=== PATIENT | female | born 1970 | race Caucasian/White ===

== ENCOUNTER 2024-07-31 13:26 | Outpatient (AMB) | payer OTHER, SELFPAY ==
--- NOTE | 2024-07-31 13:28 | A.OFFVIS_ITS ---
Vital Signs 07/31/24 13:30 Height 5 ft Weight 175 lb 4.28 oz BMI 34.2 BP 146/98 H Blood Pressure Location Rt brachial Position Sitting Pulse 81 Pulse Source Pulse Oximeter Pulse Oximetry (%) 98 Oxygen Delivery Method Room Air Intake Visit Reasons: mild intermittent asthma Allergies No Known Allergies Allergy (Verified 07/31/24 13:35) HPI Comments Details: Evaluation. The patient is a 54 year woman with a history of tobacco dependency presenting with worsening respiratory symptoms in addition to sleep apnea. The patient states that she has had worsening cough and chest congestion. She recently had a viral syndrome that developed into some chest tightness and wheezing. She went to an urgent care. There she was prescribed prednisone and also inhaler. She is not sure if she got antibiotics. She still coughing still has some chest congestion. In the meantime she also has other potential allergens. Primarily to dust mites. She is wondering if she could have a allergy component. She also has a beach house and there was significant amount of mold at the beach house. She did have worsening respiratory symptoms where she was there. Will go ahead and request additional blood work to assess her allergies to see this is a potential trigger in her worsening symptoms. The patient also has daytime drowsiness. She does have an elevated [place] score of 08/05. She has a history of significant snoring. She was evaluated by her dentist in the past considering a mandibular device but she did not get 1. Currently she does have a mouth guard for her clenching of her teeth. Will request a home sleep study this time. In regards of pulmonary function studies will hold off at this time will wait for her respiratory symptoms do improve since she is still having significant wheezing or rhonchi. She will need additional respiratory medicines to stabilize her respiratory condition and then will reassess in a few months when she returns. If she has any worsening respiratory symptoms she will call for further evaluation. [facility] Medical History (Updated 07/31/24 @ 21:39 by Skyler James MD) Tobacco dependence CELESTINO (obstructive sleep apnea) Asthma Allergies Social History (Updated 07/31/24 @ 13:34 by Sera Gar CMA) Patient Tobacco Use Status: Current everyday Tobacco user Tobacco use type: Cigarette Cigarette Packs Per Day: 0.5 Cigarettes Per Day: 8 Review of Systems Const Reports daytime sleepiness and Reports difficulty sleeping Eyes Reports no additional complaints ENT Reports nasal congestion Card Denies chest pain Resp Reports chest congestion, Reports cough and Reports wheezing GI Reports no additional complaints Musc Reports no additional complaints Skin/Breast Denies rash Endo Reports no additional complaints Jarett/Lymph Reports no additional complaints Aller/Immun Reports wheezing Physical Exam Vital Signs: Last Vital Signs Pulse 81 07/31/24 13:30 BP 146/98 H 07/31/24 13:30 Pulse Ox 98 07/31/24 13:30 Oxygen Delivery Method Room Air 07/31/24 13:30 BMI result Body Mass Index 34.2 Const General: comfortable HEENT Head: Yes normocephalic Neck Neck: Yes supple Chest Chest palpation & inspection: normal inspection of the chest Resp Effort & Inspection: normal respiratory effort Auscultation: rhonchi, wheezes and diminished lung sounds Cardio Heart sounds: S1 normal heart sound present and S2 normal heart sound present GI Palpation (GI): Soft to palpation Skin General skin exam: no rashes or lesions noted Extrem General: Yes no clubbing, cyanosis or edema Assessment & Plan Assessment & Plan (1) Allergies: Code(s): T78.40XA - Allergy, unspecified, initial encounter Category: Medical Qualifiers: Encounter type: initial encounter Qualified Code(s): T78.40XA - Allergy, unspecified, initial encounter (2) Asthma: Code(s): J45.909 - Unspecified asthma, uncomplicated Category: Medical Qualifiers: Asthma severity: moderate Asthma persistence: persistent Asthma complication type: with acute exacerbation Qualified Code(s): J45.41 - Moderate persistent asthma with (acute) exacerbation (3) CELESTINO (obstructive sleep apnea): Code(s): G47.33 - Obstructive sleep apnea (adult) (pediatric) Category: Medical (4) Tobacco dependence: Code(s): F17.200 - Nicotine dependence, unspecified, uncomplicated Category: Medical Plan start Symbicort MARIANNA as needed Zpack LDCT referral PSG PFTs when better F/U 2-3 months Orders: Orders Complete Blood Count Auto Diff Today J45.909 - Unspecified asthma, uncomplicated, T78.40XA - Allergy, unspecified, initial encounter Erythrocyte Sedimentation Rate Today J45.909 - Unspecified asthma, uncomplicated, T78.40XA - Allergy, unspecified, initial encounter Hypersensitive Pneumonitis Prf Today J45.909 - Unspecified asthma, uncomplicated, R91.8 - Other nonspecific abnormal finding of lung field, T78.40XA - Allergy, unspecified, initial encounter RT home sleep study Today G47.33 - Obstructive sleep apnea (adult) (pediatric) Resp Allergy Profile Region I Today J45.909 - Unspecified asthma, uncomplicated, R91.1 - Solitary pulmonary nodule, T78.40XA - Allergy, unspecified, initial encounter Referrals Lung Cancer Screening Referral F17.200 - Nicotine dependence, unspecified, uncomplicated Medications: New albuterol sulfate 90 mcg/actuation 2 inhalations inhalation Q6H PRN 18 grams 12RF shortness of breath or wheezing 30 days J44.9 - Chronic obstructive pulmonary disease, unspecified budesonide-formoterol 160-4.5 mcg/actuation (Symbicort) 2 puffs inhalation BID 10.2 grams 11RF 30 days J44.89 - Other specified chronic obstructive pulmonary disease azithromycin 500 mg PO DAILY 3 tabs 0RF 3 days Coding Level of Care Code New Pt Level 4 (33516) Diagnoses Allergy, initial encounter T78.40XA Encounter type: initial encounter Moderate persistent asthma with acute exacerbation J45.41 Asthma severity: moderate Asthma persistence: persistent Asthma complication type: with acute exacerbation CELESTINO (obstructive sleep apnea) G47.33 Tobacco dependence F17.200 Time Spent (min) 40
[2024-07-31 13:30] VITALS: BP 146/98; PULSE 81; O2SAT 98; BMI 34.2
== END 2024-07-31 14:01 | disposition home or self-care (01) ==
PROVIDERS: PCP Physician Assistant Medical; Visit Provider Hospitalist
DX: T78.40XA Allergy, unspecified, initial encounter (principal); J45.41 Moderate persistent asthma with (acute) exacerbation; G47.33 Obstructive sleep apnea (adult) (pediatric); F17.200 Nicotine dependence, unspecified, uncomplicated
CPT/HCPCS: 99204

== ENCOUNTER 2024-08-07 14:16 | Outpatient (REF) | payer OTHER, SELFPAY ==
[2024-08-07 16:22] LABS: MANUAL DIFF FLAG NO
[2024-08-07 16:34] LABS: Basophils Percent Auto 0.5 % (0-2); Eosinophils Absolute Auto 0.2 X10*3/uL (0.0-0.4); Hematocrit 39.4 % (37.0-47.0); Hemoglobin 13.4 g/dl (12.0-16.0); Imm Gran Abs Auto 0.01 X10*3/uL (0.00-0.03); Imm Gran Pct Auto 0.1 % (0.0-0.4); Lymphocytes Absolute Auto 2.2 X10*3/uL (1.2-4.9); Lymphocytes Percent Auto 30.3 % (20-40); Mean Corpuscular Hemoglobin 30.7 pg (27.0-33.0); Mean Corpuscular Volume 90.2 fL (80.0-98.0); Mean Platelet Volume 8.7 fL (9.4-12.3); Monocytes Absolute Auto 0.6 X10*3/uL (0.1-1.2); Monocytes Percent Auto 7.8 % (2-11); Neutrophils Absolute Auto 4.4 x10*3/uL (2.0-8.3); Neutrophils Percent Auto 59.3 % (45-73); Platelet Count 486 X10*3/uL (160-400); Red Blood Count 4.37 X10*6/uL (4.20-5.50); Red Cell Distribution Width 13.5 % (11.0-16.0); White Blood Count 7.4 X10*3/uL (4.8-10.8)
[2024-08-07 18:25] LABS: Erythrocyte Sedimentation Rate 11 MM/HR (0-20)
[2024-08-10 20:09] LABS: Class Alternaria alternata 0; Class Aspergillus fumigatus 0; Class Bermuda Grass 0; Class Birch 0; Class Cat Dander 0; Class Cladosporium herbarum 0; Class Cockroach 1; Class Common Ragweed 4; Class Cottonwood 0; Class Derm. pterony 1; Class Dermatophagoides farinae 1; Class Dog Dander 0; Class Elm 0; Class Maple Box Elder 0; Class Mountain Cedar 0; Class Mouse Urine Protein 0; Class Mugwort 0/1; Class Oak 0; Class Penicillium crysogenum 0; Class Rough Pigweed 0; Class Sheep Sorrel 0; Class Sycamore 0; Class Timothy Grass 0; Class Walnut Tree 0; Class White Ash 0; Class White Mulberry 0; D001 IgE D pteronyssinus 0.48 kU/L; D002 - IgE D farinae 0.49 kU/L; E001 - IgE Cat Dander <0.10 kU/L; E005 - IgE Dog Dander <0.10 kU/L; E072-IgE Mouse Urine <0.10 kU/L; G002 IgE Bermuda Grass <0.10 kU/L; G006 - IgE Timothy Grass <0.10 kU/L; I006-IgE Cockroach, German 0.41 kU/L; Immunoglobulin E 324 kU/L (<OR=114); M001 IgE Penicillium chrysogen <0.10 kU/L; M002 - IgE Cladosporium herbar <0.10 kU/L; M003 - IgE Aspergillus fumigat <0.10 kU/L; M006 - IgE Alternaria alternat <0.10 kU/L; T001 IgE Maple/Box Elder <0.10 kU/L; T003 IgE Common Silver Birch <0.10 kU/L; T006 - IgE Cedar, Mountain <0.10 kU/L; T007 - IgE Oak, White <0.10 kU/L; T008 IgE Elm, American <0.10 kU/L; T010 - IgE Walnut <0.10 kU/L; T011 - IgE Maple Leaf Sycamore <0.10 kU/L; T014 - IgE Cottonwood <0.10 kU/L; T015 - IgE Ash, White <0.10 kU/L; T070 - IgE White Mulberry <0.10 kU/L; W006 - IgE Mugwort 0.21 kU/L; W014 IgE Pigweed, Common <0.10 kU/L; W018 IgE Sheep Sorrel <0.10 kU/L
[2024-08-15 15:39] LABS: Asperg fumigatus Precip Abs NEGATIVE (NEGATIVE); Micropoly faeni Abs NEGATIVE (NEGATIVE); Pigeon serum Abs NEGATIVE (NEGATIVE); Saccharo pora viridis Abs NEGATIVE (NEGATIVE); Thermo candidus Abs NEGATIVE (NEGATIVE); Thermoa vulgaris #1 NEGATIVE (NEGATIVE)
== END 2024-08-07 14:17 | disposition home or self-care (01) ==
LOC: HO.HHCL 14:16
PROVIDERS: Visit Provider Hospitalist
DX: J45.909 Unspecified asthma, uncomplicated (principal); R91.1 Solitary pulmonary nodule; R91.8 Other nonspecific abnormal finding of lung field; T78.40XA Allergy, unspecified, initial encounter
CPT/HCPCS: 36415; 82785; 85025; 85652; 86003; 86331; 86606; 86609

== ENCOUNTER → 2024-12-26 15:44 | Outpatient (REF) | payer OTHER, SELFPAY ==
--- OUTSIDE RECORDS SUMMARY | 2024-12-26 18:07 | XMS_ITS | Clinical Summary ---
Author Organization [facility] ity Address [address] [place] [address] Care Team Providers Care Party Host/Hostess Name Role Phone Sona Posada MD Primary Care Provider [phone] Social History Tobacco Use Types Packs/Day Years Used Date Smoking Tobacco: Never Assessed Comments Unknown Sex and Gender Information Value Date Recorded Sex Assigned at Not on file Legal Sex Female 9:36 PM EST Gender Identity Not on file Sexual Orientation Not on file Plan of Treatment Health Maintenance Due Date Last Done Comments Breast Cancer Screening 1969 DTaP,Tdap,and Td Vaccines (1 - Tdap) 1988 Hepatitis B Vaccines (1 of 3 - 19+ 3-dose series) 1988 Cervical Cancer Screening: P ap Smear 1990 Pneumococcal Vaccine: 50+ Ye ars (1 of 1 - PCV) 2019 Zoster Vaccines (1 of 2) 2019 COVID-19 Vaccine ( - 2023-2 5 season) 2024 Influenza Vaccine (Season Ended) 2025 HIB Vaccines Aged Out No longer eligi ble based on patient's age to complete this topic HPV Vaccines Aged Out No longer eligi ble based on patient's age to complete this topic Hepatitis A Vaccines Aged Out No long er eligible based on patient's age to complete this topic IPV Vaccines Aged Out No longer eligi ble based on patient's age to complete this topic MMR Vaccines Aged Out No longer eligi ble based on patient's age to complete this topic Meningococcal ACWY Vaccine Aged Out N o longer eligible based on patient's age to complete this topic Meningococcal B Vaccine Aged Out No l onger eligible based on patient's age to complete this topic Pneumococcal Vaccine: Pediat rics (0 to 5 Years) and At-Risk Patients (6 to 64 Years) Aged Out No longer eligible b ased on patient's age to complete this topic RSV Immunization Patients Un monika 20 months Aged Out No longer eligible b ased on patient's age to complete this topic Varicella Vaccines Aged Out No longer eligible based on patient's age to complete this topic Care Teams Party Host/Hostess Relationship Specialty Start Date End Date Sona Posada MD PCP - General 06/01/23
--- OUTSIDE RECORDS SUMMARY | 2024-12-26 18:07 | XMS_ITS | Encounter Summary ---
Author Organization [facility] Address [address] [place] [address] Care Team Providers Care Stationary Engineer Refrigeration Name Role Phone Sierra Carter PA-C Primary Care Provi monika Encounter Details Date Type Department Care Team (Late st Contact Info) Description 08/21/2024 Scanned Document [address] [phone] Pulmonary, Scan Social History Tobacco Use Types Packs/Day Years Used Date Smoking Tobacco: Every Day Cigarettes Smokeless Tobacco: Current Alcohol Use Standard Drinks/Week Comments Yes 0 (1 standard drink = 0.6 oz pur e alcohol) PHQ-2 Answer Date Recorded PHQ-2 Total Score 0 01/02/2024 Comments Unknown Sex and Gender Information Value Date Recorded Sex Assigned at Female 10/13/2023 2:00 PM EST Legal Sex Female 1:56 PM EST Gender Identity Not on file Sexual Orientation Not on file documented as of this encounter Plan of Treatment Upcoming Encounters Date Type Department Care Team (Late st Contact Info) Description 01/03/2025 3:45 PM EDT Office Visit [address] [phone] Sierra Carter PA-C [address] [place] [address] documented as of this encounter Visit Diagnoses Not on filedocumented in this encounter Care Teams Stationary Engineer Refrigeration Relationship Specialty Start Date End Date Sierra Carter PA-C [address] [place] [address] PCP - General Internal Medicine 11/10/23 documented as of this encounter
--- OUTSIDE RECORDS SUMMARY | 2024-12-26 18:07 | XMS_ITS | Encounter Summary ---
Author Organization [facility] Address [address] [place] [address] Care Team Providers Care Grey Roll Worker Name Role Phone Sierra Carter PA-C Primary Care Provi monika Encounter Details Date Type Department Care Team (Late Contact Info) Description 12/07/2023 Scanned Document [facility] Urology, Scan Social History Tobacco Use Types Packs/Day Years Used Date Smoking Tobacco: Every Day Cigarettes Smokeless Tobacco: Current Alcohol Use Standard Drinks/Week Comments Yes 0 (1 standard drink = 0.6 oz pur e alcohol) Comments Unknown Sex and Gender Information Value Date Recorded Sex Assigned at Female 10/13/2023 2:00 PM EST Legal Sex Female 1:56 PM EST Gender Identity Not on file Sexual Orientation Not on file documented as of this encounter Plan of Treatment Upcoming Encounters Date Type Department Care Team ([facility] Contact Info) Description 01/03/2025 3:45 PM EDT Office Visit [address] [place] [phone] Sierra Carter PA-C [address] [place] [address] documented as of this encounter Visit Diagnoses Not on filedocumented in this encounter Care Teams Grey Roll Worker Relationship Specialty Start Date End Date Sierra Carter PA-C [address] [place] [address] PCP - General Internal Medicine 11/10/23 documented as of this encounter
--- OUTSIDE RECORDS SUMMARY | 2024-12-26 18:07 | XMS_ITS | Encounter Summary ---
Author Organization [facility] Address [address] [place] [address] Care Team Providers Care Ems Helicopter Pilot Name Role Phone Sierra Carter PA-C Primary Care Provi monika Encounter Details Date Type Department Care Team (Late Contact Info) Description 05/23/2024 Scanned Document [address] [phone] Sierra Carter PA-C [address] [place] [address] Social History Tobacco Use Types Packs/Day Years [...] Encounters Date Type Department Care Team (Late Contact Info) Description 01/03/2025 3:45 PM EDT Office Visit [address] [phone] Sierra Carter PA-C [address] [place] [address] documented as of this encounter Visit Diagnoses Not on filedocumented in this encounter Care Teams Ems Helicopter Pilot Relationship Specialty Start Date End Date Sierra Carter PA-C [address] [place] [address] PCP - General Internal Medicine 11/10/23 documented as of this encounter
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
--- OUTSIDE RECORDS SUMMARY | 2024-12-26 18:07 | XMS_ITS | Clinical Summary ---
Author Organization [employer] Address [address] [facility] [address] [place] [address] Care Team Providers Care Tracer Powder Blender Name Role Phone Unavailable Primary Care Provider Unavailabl e Immunizations Name Administration Dates Next Due Tdap 04/03/2024 Social History Tobacco Use Types Packs/Day Years Used Date Smoking Tobacco: Never Assessed Comments Unknown Sex and Gender Information Value Date Recorded Sex Assigned at Female 07/12/2022 10:37 AM EDT Legal Sex Female 10:37 AM EDT Gender Identity Female 07/12/2022 10:37 AM EDT Sexual Orientation Straight 07/12/2022 10 :37 AM EDT Plan of Treatment Health Maintenance Due Date Last Done Comments CT Colonography 1969 Colonoscopy 1969 Colorectal Cancer Screening 1969 Depression Screening 1969 FIT DNA/Cologuard 1969 FIT 1969 FOBT 1969 HIV Screening 1969 Lipid Panel 1969 SDOH Screening 1969 Sigmoidoscopy 1969 Pneumococcal Vaccine: Pediat rics (0 to 5 Years) and At-Risk Patients (6 to 49) Years) (1 of 2 - PCV) 1975 Alcohol/Substance Use Screening 1981 Tobacco Screening 1981 Hepatitis C Screening 1987 Hepatitis B Vaccines (1 of 3 - 19+ 3-dose series) 1988 Pneumococcal Vaccine: 50+ Ye ars (1 of 2 - PCV) 1988 Pap Smear 1990 Cervical Cancer Screening 1999 HPV/Cotest 1999 Mammogram 2009 Zoster Vaccines (1 of 2) 2019 COVID-19 Vaccine (2 - 2024-2 5 season) 2024 06/02/2021 Influenza Vaccine (#1) 2024 DTaP/Tdap/Td Vaccines (2 - T d or Tdap) 04/03/2034 04/03/2024 RSV Patients and Pa tients Aged 60 years or older (1 - 1-dose 75+ series) 2044 HIB Vaccines Aged Out No longer eligi [...] patient's age to complete this topic Meningococcal Vaccine Aged Out No dick isrrael eligible based on patient's age to complete this topic RSV under 20 months Aged Out No longe r eligible based on patient's age to complete this topic Rotavirus Vaccines Aged Out No longer eligible based on patient's age to complete this topic
--- OUTSIDE RECORDS SUMMARY | 2024-12-26 18:07 | XMS_ITS | Encounter Summary ---
Author Organization [facility] Address [address] [place] [address] Care Team Providers Care Chainstitch Sewing Machine Operator Name Role Phone Sierra Carter PA-C Primary Care Provi monika Encounter Details Date Type Department Care Team (Late Contact Info) Description 03/23/2024 Scanned Document [facility] [address] [place] [phone] Sierra Carter PA-C [address] [place] [address] Social History Tobacco Use Types Packs/Day Years [...] Description 01/03/2025 3:45 PM EDT Office Visit [address] [place] [phone] Sierra Carter PA-C [address] [place] [address] documented as of this encounter Visit Diagnoses Not on filedocumented in this encounter Care Teams Chainstitch Sewing Machine Operator Relationship Specialty Start Date End Date Sierra Carter PA-C [address] [place] [address] PCP - General Internal Medicine 11/10/23 documented as of this encounter
--- OUTSIDE RECORDS SUMMARY | 2024-12-26 18:07 | XMS_ITS | Encounter Summary ---
Author Organization [facility] Address [address] [place] [address] Care Team Providers Care Ceramic Plater Name Role Phone Pcp, No Primary Care Provider Unavailabl e Sierra Carter PA-C Primary Care Provi monika Reason for Visit * Reason Comments Appointment Advice Only Encounter Details Date Type Department Care Team (Late st Contact Info) Description 11/04/[address] [phone] Sierra Carter PA-C [address] [place] [phone] Appointment; Advice Only Social History Tobacco Use Types Packs/Day Years Used Date Smoking Tobacco: Never Assessed Comments Unknown Sex and Gender Information Value Date Recorded Sex Assigned at Female 10/13/2023 2:00 PM EST Legal Sex Female 1:56 PM EST Gender Identity Not on file Sexual Orientation Not on file documented as of this encounter Miscellaneous Notes * Telephone Encounter - Ina Rodrigues - 11/04/2023 3:05 PM EST Urgent appt made for * Telephone Encounter - Haley Nelson RN - 11/04/2023 1:15 PM EST Spoke with Taylor, states went to urgent care on Tuesday for an ear lavage. While at urgent careher blood pressure was found to be 160/102 at first & came down to 158/98 at the end of the visit. Her current blood pressure today is 160/90 and states she has been averaging that this week. Shereports a little headache but also states it came on when she realized her blood pressure was high. She takes amlodipine & hydrochlorothiazide at home. documented in this encounter Plan of Treatment Upcoming Encounters Date Type Department Care Team (Late st Contact Info) Description 01/03/2025 3:45 PM EDT Office Visit [address] [place] [address] Sierra Carter PA-C [address] [place] [address] documented as of this encounter Visit Diagnoses Not on filedocumented in this encounter Care Teams Ceramic Plater Relationship Specialty Start Date End Date Pcp, No PCP - General General Medicine 10/13/23 11/09/23 Sierra Carter PA-C [address] [place] [address] PCP - General Internal Medicine 11/10/23 documented as of this encounter
== END ==
LOC: HO.SL 15:44
PROVIDERS: PCP Physician Assistant Medical; Visit Provider Hospitalist
DX: G47.33 Obstructive sleep apnea (adult) (pediatric) (principal)
CPT/HCPCS: 95806

== ENCOUNTER → 2024-12-26 16:00 | Outpatient (BNV) | payer OTHER, SELFPAY | PROVIDERS: PCP Physician Assistant Medical; Visit Provider Internal Medicine | DX: R06.83 Snoring (principal) | CPT/HCPCS: 95806 ==

== ENCOUNTER 2025-01-08 15:29 | Outpatient (AMB) | payer OTHER, SELFPAY ==
[2025-01-08 15:31] VITALS: BP 136/88; PULSE 85; O2SAT 97; BMI 34.9
--- NOTE | 2025-01-08 15:31 | A.OFFVIS_ITS ---
Vital Signs 01/08/25 15:31 Height 5 ft Weight 178 lb 9.191 oz BMI 34.9 BP 136/88 Blood Pressure Location Rt brachial Position Sitting Pulse 85 Pulse Source Pulse Oximeter Pulse Oximetry (%) 97 Oxygen Delivery Method Room Air Intake Visit Reasons: Asthma Licensed Psychologist Required: No Accompanied by: Self / Same As Patient Allergies No Known Allergies Allergy (Verified 01/08/25 15:34) HPI Comments Details: The patient is a 54 year woman with a history of tobacco dependency presenting with worsening respiratory symptoms in addition to sleep apnea. The patient states that she has had worsening cough and chest congestion. She recently had a viral syndrome that developed into some chest tightness and wheezing. She went to an urgent care. There she was prescribed prednisone and also inhaler. She is not sure if she got antibiotics. She still coughing still has some chest congestion. In the meantime she also has other potential allergens. Primarily to dust mites. She is wondering if she could have a allergy component. She also has a beach house and there was significant amount of mold at the beach house. She did have worsening respiratory symptoms where she was there. Will go ahead and request additional blood work to assess her allergies to see this is a potential trigger in her worsening symptoms. The patient also has daytime drowsiness. She does have an elevated Austin score of 11/24. She has a history of significant snoring. She was evaluated by her dentist in the past considering a mandibular device but she did not get 1. Currently she does have a mouth guard for her clenching of her teeth. Will request a home sleep study this time. In regards of pulmonary function studies will hold off at this time will wait for her respiratory symptoms do improve since she is still having significant wheezing or rhonchi. She will need additional respiratory medicines to stabilize her respiratory condition and then will reassess in a few months when she returns. If she has any worsening respiratory symptoms she will call for further evaluation. 01/08/2025 the patient is here for a pulmonary follow-up visit. Overall she is doing well. She still having snoring issues in daytime drowsiness with an elevated Austin score. She did have a home sleep study which was pretty benign she did have just 3 episodes in our sleep apnea and she did have some issues with snoring. It appears that she sleeps mainly her right side and does when sh e has most of the snoring and sleep apnea. Therefore, she is going to try positional therapy. We also talked about an oral mandibular device that she can get for her dentist. She is already using mouth guard so using a an elastic mandibular device will be something that will provide additional airway clearance and decrease the snoring. The patient has not had her CT scan yet. She is going to reschedule that today. The patient continues use her respiratory therapy with good effect. She has not had to use Symbicort any longer. I did recommend she can uses Symbicort as needed or switch over to air supra and use that when as needed. The patient otherwise doing well if she has any worsening daytime drowsiness even with positional therapy and she is considering a sleep study she can always call me in a put in place her in for an in-lab sleep study to get a more accurate result. Otherwise will follow-up in a year's time if she does not issues she will call for an earlier assessment. [facility] Medical History (Updated 01/08/25 @ 23:52 by Skyler James MD) Tobacco dependence CELESTINO (obstructive sleep apnea) Asthma Allergies Social History (Updated 01/08/25 @ 15:35 by Rox Bonilla CMA) Alcohol intake: current Alcohol intake frequency: holidays/special occasions only Patient Tobacco Use Status: Current everyday Tobacco user Tobacco use type: Cigarette Cigarette Packs Per Day: 0.5 Cigarettes Per Day: 8 Review of Systems Const Denies chills, Reports daytime sleepiness, Denies fatigue, Denies fever(s), Reports snoring, Denies weight gain and Denies weight loss Eyes Reports no additional complaints ENT Denies dizziness Card Denies chest pain, Denies leg edema, Denies lightheadedness, Denies palpitations, Denies dyspnea on exertion, Denies orthopnea and Denies other Resp Denies cough, Denies dyspnea on exertion, Reports snoring and Reports wheezing GI Denies hematochezia and Denies change in stool character Musc Denies abnormal gait, Denies muscle weakness, Denies numbness, Denies radiating pain into limb and Denies tingling Skin/Breast Denies rash Neuro Denies abnormal gait, Denies dizziness, Denies numbness and Denies tingling Endo Denies fatigue and Denies palpitations Jarett/Lymph Reports no additional complaints Aller/Immun Reports wheezing Physical Exam Vital Signs: Last Vital Signs Pulse 85 01/08/25 15:31 BP 136/88 01/08/25 15:31 Pulse Ox 97 01/08/25 15:31 Oxygen Delivery Method Room Air 01/08/25 15:31 BMI result Body Mass Index 34.9 Const General: comfortable HEENT Head: Yes normocephalic Neck Neck: Yes supple Chest Chest palpation & inspection: normal inspection of the chest Resp Effort & Inspection: normal respiratory effort Auscultation: clear to auscultation bilaterally, no rhonchi and no wheezes Cardio Heart sounds: S1 normal heart sound present and S2 normal heart sound present GI Palpation (GI): Soft to palpation Skin General skin exam: no rashes or lesions noted Extrem General: Yes no clubbing, cyanosis or edema Assessment & Plan Assessment & Plan (1) Allergies: Code(s): T78.40XA - Allergy, unspecified, initial encounter Category: Medical Qualifiers: Encounter type: initial encounter Qualified Code(s): T78.40XA - Allergy, unspecified, initial encounter (2) Asthma: Code(s): J45.909 - Unspecified asthma, uncomplicated Category: Medical Qualifiers: Asthma complication type: uncomplicated Asthma persistence: persistent Asthma severity: moderate Qualified Code(s): J45.40 - Moderate persistent asthma, uncomplicated (3) CELESTINO (obstructive sleep apnea): Code(s): G47.33 - Obstructive sleep apnea (adult) (pediatric) Category: Medical (4) Tobacco dependence: Code(s): F17.200 - Nicotine dependence, unspecified, uncomplicated Category: Medical Plan Symbicort or Airsupra as needed MARIANNA as needed LDCT referral PSG normal with snorring: Will look into OMD and positional therapy. Best on her left side down PFTs in the future F/U 8-12 months Medications: New albuterol-budesonide 90-80 mcg/actuation (Airsupra) 2 inhalations inhalation BID PRN 10.7 grams 5RF shortness of breath Coding Level of Care Code Est Pt Level 4 (35423) Diagnoses Allergy, initial encounter T78.40XA Encounter type: initial encounter Moderate persistent asthma without complication J45.40 Asthma complication type: uncomplicated Asthma persistence: persistent Asthma severity: moderate CELESTINO (obstructive sleep apnea) G47.33 Tobacco dependence F17.200 Time Spent (min) 16
--- OUTSIDE RECORDS SUMMARY | 2025-01-08 18:11 | XMS_ITS | Encounter Summary ---
Author Organization [facility] Address [address] [place] [id number] Care Team Providers Care Delivery Helper Name Role Phone Sierra Carter PA-C Primary Care Provi monika Reason for Visit * Reason Comments Annual Exam Encounter Details Date Type Department Care Team (Late st Contact Info) Description 01/03/2025 3:45 PM EDT Office Visit [address] [phone] Sierra Carter PA-C [address] [place] [phone] Annual physical exam (Primary Dx); Benign essential hypertension; Kidney cysts; Tobacco use; Vitamin D deficiency; Mild intermittent asthma without complication; Chronic low back pain, unspecified back pain laterality, unspecified whether sciatica present; Morbid obesity (HCC) Social History Tobacco Use Types Packs/Day Years Used Date Smoking Tobacco: Every Day Cigarettes Smokeless Tobacco: Current Alcohol Use Standard Drinks/Week Comments Yes 0 (1 standard drink = 0.6 oz pur e alcohol) [facility] Utilities Answer Date Recorded In the past 12 months has e electric, gas, oil, or water company threatened to shut off services in your home? Yes 01/01/2025 Social Connection and Isolat ion Panel [NHANES] Answer Date Recorded In a typical week, how many times do you talk on the phone with family, friends, or neighbors? More than three times a week 01/01/2025 Frequency of Social Gatherin gs with Friends and Family Not on file 01/01/2025 Attends Tenriism Services Not on file 01/01 Active Member of Clubs or Organizations Not on f ile 01/01/2025 Attends Club or Organization Meetings Not on taylor e 01/01/2025 Marital Status Not on file 01/01/2025 AUDIT-C Answer Date Recorded Q1: How often do you have a drink containing alc ohol? 2-4 times a month 01/01/2025 Q2: How many drinks containi ng alcohol do you have on a typical day when you are drinking? 3 or 4 01/01/2025 Frequency of Binge Drinking Not on file 12/12 PHQ-2 Answer Date Recorded PHQ-2 Total Score 0 01/01/2025 Hunger Vital Sign Answer Date Recorded Within the past 12 months, y ou worried that your food would run out before you got the money to buy more. Sometimes true Within the past 12 months, t he food you bought just didn't last and you didn't have money to get more. Sometimes true PRAPARE - Transportation Answer Date Re corded In the past 12 months, has l ack of transportation kept you from medical appointments or from getting medications? No 12/12 In the past 12 months, has l ack of transportation kept you from meetings, work, or from getting things needed for daily living? No 01/01/2025 Housing Stability Vital Sign Answer Roscoe e Recorded In the last 12 months, was t here a time when you were not able to pay the mortgage or rent on time? Yes 01/01/2025 In the past 12 months, how m any times have you moved where you were living? 0 01/01/2025 At any time in the past 12 m [facility], were you homeless or living in a alf (including now)? No 01/01/2025 Physical Activity Answer Date Recorded On average, how many days pe r week do you engage in moderate to strenuous exercise (like a brisk walk)? 4 days 01/01/2025 On average, how many minutes do you exercise per day at this level? 30 min 01/01/2025 Education Answer Date Recorded What is the [...] on file documented as of this encounter Last Filed Vital Signs Vital Sign Reading Time Taken Comments Blood Pressure 128/84 01/03/2025 3:36 PM EDT Pulse 87 01/03/2025 3:36 PM EDT Temperature 36.4 ??C (97.5 ??F) 01/03/2025 3:36 PM ED T Respiratory Rate 20 01/03/2025 3:36 PM EDT Oxygen Saturation 95% 01/03/2025 3:36 PM EDT Inhaled Oxygen Concentration - - Weight 81.7 kg (180 lb 3.2 oz) 01/03/2025 3:36 P M EDT Height 152.4 cm (5') 01/03/2025 3:36 PM EDT Body Mass Index 35.19 01/03/2025 3:36 PM EDT documented in this encounter Progress Notes * Sierra Carter PA-C - 01/03/2025 3:50 PM EDT Assessment and Plan 1. Annual physical exam Fasting labs sent to [facility]. Patient is up-to-date with her Tdap. She is due for Shingrix and Prevnar 20. She is up-to-date with her [employer] exam and mammogram. Had a colonoscopy in April 2021. She will be due in 2030. Diet and exercise. Patient had sleep study done through pulmonary. Follow-up in 6 months. 2. Benign essential hypertension Compliant with blood pressure medications. Blood pressures have been good. 3. Kidney cysts Follows with [facility] urology. States she is scheduled for an MRI to follow-up on the renal cyst shortly. Patient has a history of a Bosniak 2F. 4. Tobacco use Patient still continues to smoke. She is not interested in quitting at this time. Patient saw pulmonary and has a low-dose CAT scan screen at [facility]. 5. Vitamin D deficiency Not taking vitamin D at this time. Will check a vitamin D level. 6. Mild intermittent asthma without complication Has an albuterol inhaler that she has not needed. We need to do PFTs for pulmonary. 7. Chronic low back pain, unspecified back pain laterality, unspecified whether sciatica present Patient was seen by her sister office back in November 2024 MRI of the back was ordered. It showed : IMPRESSION: -At L3-4 where there is moderate [...] on the right exiting L5 nerve roots. Patient was seen by orthopedics. Although she has significant radiographic findings, symptomatically she is doing very well and almost back to her baseline status. The recommendation was watchful observation. Possible epidural injection. 8. Morbid obesity (HCC) Patient will work on weight watchers and exercise. Return in about 6 months (around 07/05/2025) for 30 MINUTES. Communication barriers and lifestyle preferences were addressed with the patient. The care plan including medications and self-management goals were reviewed to the best of the patient's abilities. All questions and concerns were answered. Patient and/or family verbalized understanding of the plan of care. Screening, Counseling & Education Labs reviewed, Vaccination Counseling, Breast cancer screening, Cervical cancer screening, and Colorectal cancer screening Subjective Patient's concern for today: Annual exam/follow-up chronic medical issues Review of Systems Constitutional: Negative for appetite change, chills, fatigue, fever and unexpected weight change. Neg night sweats HENT: Negative for ear pain, hearing loss, nosebleeds, sinus pressure, sinus pain, sore throat, tinnitus, trouble swallowing and voice change. Eyes: Negative for pain and visual disturbance. Respiratory: Negative for apnea, cough, chest tightness, shortness of breath and wheezing. Cardiovascular: Negative for chest pain, palpitations and leg swelling. Neg irregular heartbeat Gastrointestinal: Negative for abdominal pain, anal bleeding, blood in stool, constipation, diarrhea, nausea, rectal pain and vomiting. Denies dyspepsia or dysphagia Endocrine: Negative for polydipsia, polyphagia and polyuria. Genitourinary: Negative for decreased urine volume, difficulty urinating, dysuria, flank pain, frequency, genital sores, hematuria and urgency. Musculoskeletal: Negative for arthralgias, back pain, joint swelling and myalgias. Skin: Negative for rash. No new skin lesions Neurological: Negative for dizziness, tremors, syncope, weakness, light- headedness, numbness and headaches. Hematological: Does not bruise/bleed easily. Psychiatric/Behavioral: Negative for agitation, confusion, hallucinations, sleep disturbance and suicidal ideas. The patient is not nervous/anxious. General Health & Lifestyle Review Do you feel you eat a healthy and well balanced diet?: (Patient-Rptd) Yes Do you have a special kind of diet?: (Patient-Rptd) No On average, how many days per week do you engage in moderate to strenuous exercise (like a brisk walk)?: (Patient-Rptd) 4 days On average, how many minutes do you exercise per day at this level?: (Patient- Rptd) 30 min Total minutes per week of physical activity: : (Patient-Rptd) 120 Body mass index is 35.19 kg/m??. Wt Readings from Last 2 Encounters: 01/03/25 81.7 kg (180 lb 3.2 oz) 11/26/24 80.1 kg (176 lb 9.6 oz) Sleep quality: Generally restful sleep Do you have any problems with your hearing?: (Patient-Rptd) No Do you have any problems with your vision?: (!) (Patient-Rptd) Yes Sexual/ Reproductive Health Are you sexually active?: (Patient-Rptd) Yes Do you use control/contraception?: (Patient-Rptd) No Do you have problems with sex?: (Patient-Rptd) No Sexual partners?: (Patient-Rptd) Men Do you want STD testing today?: (Patient-Rptd) No Mental Health/Domestic Violence/Safety Screening Depression Screen: PHQ-9 Total Score: 0 Anxiety Screen: BIANKA-7 Total Score: 0 Is there anyone in your life who is hurting or threatening you in any way? no Referral Hotline [phone] (Luxembourger) [phone] (Libyan) Do you always fasten your seatbelt when you are in a car?: (Patient-Rptd) Yes Do you wear a helmet when appropriate?: (Patient-Rptd) Yes Do you wear sunscreen when appropriate?: (Patient-Rptd) Yes Do you have working smoke and carbon monoxide detectors?: (Patient-Rptd) Yes Do you have any unsecured firearms in your home?: (Patient-Rptd) No Health Maintenance & Immunizations Health Maintenance Due Topic Date Due Hepatitis C Virus Screening Never done HIV Screening Never done Pneumococcal Vaccines 50+ (1 of 2 - PCV) Never done Hepatitis B Vaccines (1 of 3 - 19+ 3-dose series) Never done Pap Smear (Ages 21-65) Never done Zoster (Shingles) Vaccine (1 of 2) Never done Influenza Vaccine Never done COVID-19 Vaccine ( season) Never done Physical 01/01/2025 The 10-year ASCVD risk score (Traci SNYDER, et al., 2019) is: 2.8% Values used to calculate the score: Age: 54 years Sex: Female Is Non- : No Diabetic: No Tobacco smoker: Yes Systolic Blood Pressure: 128 mmHg Is BP treated: No HDL Cholesterol: 74 mg/dL Total Cholesterol: 156 mg/dL Social History Social History[1] Objective Vitals: 01/03/25 1536 BP: 128/84 BP Location: Left arm Patient Position: Sitting Cuff Size: Large Pulse: 87 Resp: 20 Temp: 97.5 ??F (36.4 ??C) TempSrc: Temporal SpO2: 95% Weight: 81.7 kg (180 lb 3.2 oz) Height: 1.524 m (5') Physical Exam Vitals reviewed. Constitutional: Appearance: Normal appearance. HENT: Head: Normocephalic and atraumatic. Right Ear: Tympanic membrane normal. Left Ear: Tympanic membrane normal. Mouth/Throat: Mouth: Mucous membranes are moist. Pharynx: Oropharynx is clear. No oropharyngeal exudate. Eyes: Extraocular Movements: Extraocular movements intact. Conjunctiva/sclera: Conjunctivae normal. Pupils: Pupils are equal, round, and reactive to light. Neck: Vascular: No carotid bruit. Cardiovascular: Rate and Rhythm: Normal rate and regular rhythm. Pulses: Normal pulses. Heart sounds: Normal heart sounds. Pulmonary: Effort: Pulmonary effort is normal. Breath sounds: Normal breath sounds. Abdominal: General: Abdomen is flat. Bowel sounds are normal. Palpations: Abdomen is soft. There is no mass. Tenderness: There is no abdominal tenderness. Genitourinary: Comments: Deferred Musculoskeletal: General: No swelling or tenderness. Cervical back: Neck supple. No tenderness. Right lower leg: No edema. Left lower leg: No edema. Lymphadenopathy: Cervical: No cervical adenopathy. Skin: General: Skin is warm and dry. Neurological: General: No focal deficit present. Mental Status: She is alert and oriented to person, place, and time. Cranial Nerves: No cranial nerve deficit. Sensory: No sensory deficit. Motor: No weakness. Coordination: Coordination normal. Gait: Gait normal. Deep Tendon Reflexes: Reflexes normal. Psychiatric: Mood and Affect: Mood normal. Behavior: Behavior normal. Thought Content: Thought content normal. Judgment: Judgment normal. Recent Results (from the past 8760 hours) ECG 12 lead Collection Time: 01/03/25 5:10 PM Narrative Sinus rhythm 80 bpm [1] Social History Tobacco Use Smoking status: Every Day Types: Cigarettes Smokeless tobacco: Current Vaping Use Vaping status: Never Used Substance Use Topics Alcohol use: Yes Drug use: Never documented in this encounter Plan of Treatment Upcoming Encounters Date Type Department Care Team (Late st Contact Info) Description 07/08/2025 4:00 PM EDT Office Visit [address] [phone] Sierra Carter PA-C [address] [place] [id number] Scheduled Orders Name Type Priority Associated Diagnoses Orde r Schedule Complete Blood Count, with Differential Lab Routine Annual physical exam Benign essential hypertension Kidney cysts Tobacco use Vitamin D deficiency Mild intermittent asthma without complication Chronic low back pain, unspecified back pain laterality, unspecified whether sciatica present Morbid obesity (HCC) Ordered: 01/03/2025 BASIC METABOLIC PANEL Lab Routine Annual physical exam Benign essential hypertension Kidney cysts Tobacco use Vitamin D deficiency Mild intermittent asthma without complication Chronic low back pain, unspecified back pain laterality, unspecified whether sciatica present Morbid obesity (HCC) Ordered: 01/03/2025 HEPATIC FUNCTION PANEL Lab Routine Annual physical exam Benign essential hypertension Kidney cysts Tobacco use Vitamin D deficiency Mild intermittent asthma without complication Chronic low back pain, unspecified back pain laterality, unspecified whether sciatica present Morbid obesity (HCC) Ordered: 01/03/2025 VITAMIN D, 25-HYDROXY Lab Routine Annual physical exam Benign essential hypertension Kidney cysts Tobacco use Vitamin D deficiency Mild intermittent asthma without complication Chronic low back pain, unspecified back pain laterality, unspecified whether sciatica present Morbid obesity (HCC) Ordered: 01/03/2025 TSH REFLEX FREE T4 Lab Routine Annual physical exam Benign essential hypertension Kidney cysts Tobacco use Vitamin D deficiency Mild intermittent asthma without complication Chronic low back pain, unspecified back pain laterality, unspecified whether sciatica present Morbid obesity (HCC) Ordered: 01/03/2025 Lipid panel with nonHDL Lab Routine Annual physical exam Benign essential hypertension Kidney cysts Tobacco use Vitamin D deficiency Mild intermittent asthma without complication Chronic low back pain, unspecified back pain laterality, unspecified whether sciatica present Morbid obesity (HCC) Ordered: 01/03/2025 Urinalysis with Microscopic Lab Routine Annual physical exam Benign essential hypertension Kidney cysts Tobacco use Vitamin D deficiency Mild intermittent asthma without complication Chronic low back pain, unspecified back pain laterality, unspecified whether sciatica present Morbid obesity (HCC) Ordered: 01/03/2025 documented as of this encounter Procedures Procedure Name Priority Date/Time Associated Diagnosis Comments ECG 12-LEAD Routine 01/03/2025 5:10 PM EDT Annual physical exam documented in this encounter Results * ECG 12 lead (01/03/2025 5:10 PM EDT) 01/03/2025 5:10 PM EDT Narrative Sean Edge MA - 01/03/2025 5:10 PM EDT Sinus rhythm 80 bpm us Sierra Carter PA-C ECG ORDERABLES Fin al Result documented in this encounter Visit Diagnoses Diagnosis Annual physical exam- Primary Routine general medical examination at a health care facility Benign essential hypertension Essential hypertension, benign Kidney cysts Tobacco use Vitamin D deficiency Mild intermittent asthma without complication Chronic low back pain, unspecified back pain laterality, unspecified whether sciatica present Morbid obesity (HCC) Morbid obesity documented in this encounter Care Teams Delivery Helper Relationship Specialty Start Date End Date Sierra Carter PA-C [address] [place] [address] PCP - General Internal Medicine 11/10/23 documented as of this encounter
--- OUTSIDE RECORDS SUMMARY | 2025-01-08 18:11 | XMS_ITS | Encounter Summary ---
Author Organization [facility] Address [address] [place] [address] Care Team Providers Care Neon Glass Bender Name Role Phone Sierra Carter PA-C Primary Care Provi monika Encounter Details Date Type Department Care Team (Latest Contact Info) Description 01/03/2025 Travel Social History Tobacco Use Types Packs/Day Years Used Date Smoking Tobacco: Every Day Cigarettes Smokeless Tobacco: Current Alcohol Use Standard Drinks/Week Comments Yes 0 (1 standard drink = 0.6 oz pur e alcohol) [facility] Utilities Answer Date Recorded In the past 12 months has [place] electric, gas, oil, or water company threatened [...] and Family Not on file 01/01/2025 Attends Gnosticist Services Not on file 01/01 Active Member [...] any time in the past 12 m [facility], were you homeless or living in a group home (including now)? No 01/01/2025 Physical Activity Answer [...] Upcoming Encounters Date Type Department Care Team (Pk st Contact Info) Description 07/08/2025 4:00 PM EDT Office Visit [address] [phone] Sierra Carter PA-C [address] [place] [address] documented as of this encounter Visit Diagnoses Not on filedocumented in this encounter Care Teams Neon Glass Bender Relationship Specialty Start Date End Date Sierra Carter PA-C [address] [place] [address] PCP - General Internal Medicine 11/10/23 documented as of this encounter
--- OUTSIDE RECORDS SUMMARY | 2025-01-08 18:12 | XMS_ITS | Encounter Summary ---
Author Organization [facility] Address [address] [place] [address] Care Team Providers Care Supervisor Ore Dressing Name Role Phone Pcp, No Primary Care Provider Unavailabl e Sierra Carter PA-C Primary Care Provi monika Reason for Visit * Reason Comments Appointment Advice Only Encounter Details Date Type Department Care Team (Late st Contact Info) Description 11/04/[address] [phone] Sierra Carter PA-C [address] [place] [phone] Appointment; Advice Only Social History Tobacco Use [...] Description 07/08/2025 4:00 PM EDT Office Visit [address] [place] [address] Sierra Carter PA-C [address] [place] [address] documented as of this encounter Visit Diagnoses Not on filedocumented in this encounter Care Teams Supervisor Ore Dressing Relationship Specialty Start Date End Date Pcp, No PCP - General General Medicine 10/13/23 11/09/23 Sierra Carter PA-C [address] [place] [address] PCP - General Internal Medicine 11/10/23 documented as of this encounter
--- OUTSIDE RECORDS SUMMARY | 2025-01-08 18:12 | XMS_ITS | Encounter Summary ---
Author Organization [facility] Address [address] [place] [address] Care Team Providers Care Neonatal Doctor Name Role Phone Sierra Carter PA-C Primary Care Provi monika Encounter Details Date Type Department Care Team (Late st Contact Info) Description 08/21/2024 Scanned Document [address] [phone] Pulmonary, Scan Social History Tobacco Use Types [...] Description 07/08/2025 4:00 PM EDT Office Visit [address] [phone] Sierra Carter PA-C [address] [place] [address] documented as of this encounter Visit Diagnoses Not on filedocumented in this encounter Care Teams Neonatal Doctor Relationship Specialty Start Date End Date Sierra Carter PA-C [address] [place] [address] PCP - General Internal Medicine 11/10/23 documented as of this encounter
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
--- OUTSIDE RECORDS SUMMARY | 2025-01-08 18:12 | XMS_ITS | Encounter Summary ---
Author Organization [facility] Address [address] [place] [address] Care Team Providers Care Postal Delivery Officer Name Role Phone Sierra Carter PA-C Primary Care Provi monika Encounter Details Date Type Department Care Team ([facility] Contact Info) Description 12/07/2023 Scanned Document [facility] UROLOGY SCAN Urology, Scan Social History Tobacco [...] Upcoming Encounters Date Type Department Care Team ([facility] Contact Info) Description 07/08/2025 4:00 PM EDT Office Visit [address] [place] [phone] Sierra Carter PA-C [address] [place] [address] documented as of this encounter Visit Diagnoses Not on filedocumented in this encounter Care Teams Postal Delivery Officer Relationship Specialty Start Date End Date Sierra Carter PA-C [address] [place] [address] PCP - General Internal Medicine 11/10/23 documented as of this encounter
--- OUTSIDE RECORDS SUMMARY | 2025-01-08 18:12 | XMS_ITS | Encounter Summary ---
Author Organization [facility] Address [address] [place] [address] Care Team Providers Care Stenotype Machine Operator Name Role Phone Sierra Carter PA-C Primary Care Provi monika Encounter Details Date Type Department Care Team (Late Contact Info) Description 03/23/2024 Scanned Document [facility] [address] [place] [phone] Sierra Carter PA-C [address] [place] [address] Social History Tobacco Use Types Packs/Day Years [...] Department Care Team (Late Contact Info) Description 07/08/2025 4:00 PM EDT Office Visit [address] [place] [phone] Sierra Carter PA-C [address] [place] [address] documented as of this encounter Visit Diagnoses Not on filedocumented in this encounter Care Teams Stenotype Machine Operator Relationship Specialty Start Date End Date Sierra Carter PA-C [address] [place] [address] PCP - General Internal Medicine 11/10/23 documented as of this encounter
--- OUTSIDE RECORDS SUMMARY | 2025-01-08 18:12 | XMS_ITS | Clinical Summary ---
Author Organization [employer] Address [address] [facility] [address] [place] [address] Care Team Providers Care Brushing Machine Operator Name Role Phone Unavailable Primary Care Provider [...]
--- OUTSIDE RECORDS SUMMARY | 2025-01-08 18:12 | XMS_ITS | Encounter Summary ---
Author Organization [facility] Address [address] [place] [address] Care Team Providers Care Head Cleaning Porter Name Role Phone Sierra Carter PA-C Primary Care Provi monika Reason for Visit * Reason Onset Date Comments Medication Refill 01/04/2025 Encounter Details Date Type Department Care Team (Late st Contact Info) Description 01/04/[address] [phone] Sierra Carter PA-C [address] [place] [address] Benign essential hypertension Social History Tobacco Use Types Packs/Day Years Used Date Smoking Tobacco: Every Day Cigarettes Smokeless Tobacco: Current Alcohol Use Standard Drinks/Week Comments Yes 0 (1 standard drink = 0.6 oz pur e alcohol) [facility] Utilities Answer Date Recorded In the past 12 months has [employer] electric, gas, oil, or water company threatened [...] and Family Not on file 01/01/2025 Attends [employer] Not on file 01/01 Active Member [...] any time in the past 12 m [facility], were you homeless or living in a jail (including now)? No 01/01/2025 Physical Activity Answer [...] Description 07/08/2025 4:00 PM EDT Office Visit [facility] [address] [facility] [address] [place] [address] Sierra Carter PA-C [address] [place] [address] documented as of this encounter Visit Diagnoses Diagnosis Benign essential hypertension Essential hypertension, benign documented in this encounter Care Teams Head Cleaning Porter Relationship Specialty Start Date End Date Sierra Carter PA-C [address] [place] [address] PCP - General Internal Medicine 11/10/23 documented as of this encounter
--- OUTSIDE RECORDS SUMMARY | 2025-01-08 18:12 | XMS_ITS | Encounter Summary ---
Author Organization [facility] Address [address] [place] [address] Care Team Providers Care Abrasive Mixer Name Role Phone Sierra Carter PA-C Primary Care Provi monika Encounter Details Date Type Department Care Team (Late Contact Info) Description 05/23/2024 Scanned Document [address] [phone] Sierra Carter PA-C [address] [place] [address] Social History Tobacco Use Types Packs/Day Years [...] Description 07/08/2025 4:00 PM EDT Office Visit [address] [phone] Sierra Carter PA-C [address] [place] [address] documented as of this encounter Visit Diagnoses Not on filedocumented in this encounter Care Teams Abrasive Mixer Relationship Specialty Start Date End Date Sierra Carter PA-C [address] [place] [address] PCP - General Internal Medicine 11/10/23 documented as of this encounter
--- OUTSIDE RECORDS SUMMARY | 2025-01-08 18:12 | XMS_ITS | Clinical Summary ---
Author Organization [facility] Address [address] [place] [address] Care Team Providers Care Career Counselor Name Role Phone Sona Posada MD Primary Care Provider [phone] Social History Tobacco Use Types Packs/Day Years [...] age to complete this topic Care Teams Career Counselor Relationship Specialty Start Date End Date Sona Posada MD PCP - General 06/01/23
== END 2025-01-08 16:04 | disposition home or self-care (01) ==
LOC: HO.HPS 15:30
PROVIDERS: PCP Physician Assistant Medical; Visit Provider Hospitalist
DX: T78.40XA Allergy, unspecified, initial encounter (principal); J45.40 Moderate persistent asthma, uncomplicated; G47.33 Obstructive sleep apnea (adult) (pediatric); F17.200 Nicotine dependence, unspecified, uncomplicated
CPT/HCPCS: 99214